=== PATIENT | male | born 1990 | race Caucasian/White ===

== ENCOUNTER 2025-05-25 07:09 | Emergency (ER) | payer OTHER, SELFPAY ==
--- OUTSIDE RECORDS SUMMARY | 2024-07-23 09:20 | XMS_ITS ---
Author Organization BILLING FACILITY [facility] Address [address] [place] [address] Care Team Providers Care Sharepoint Application Developer Name Role Phone CauseyRiley hoff Primary Care Provider Encounters Encounter Location Date Provider Diagnosis [address] [place] [address] 07/23/2024 Riley Causey Adult general medica l examination Z00.00 ASSESSMENTS Encounter Date Diagnosis Assessment Notes Treatment Notes Treatment Clinical Notes Section Notes 07/23/2024 Adult general medical examination (ICD-10 - Z00.00) PLAN OF TREATMENT Future Test Test Name Order Date Comp. Metabolic Panel (14) (CMP)(561916) 07/23/2024 TSH (393831) 07/23/2024 CBC With Differential/Platelet (224306) 07/23/2024 Lipid Panel w/ Chol/HDL Ratio (766212) 0 07/23/2024 Progress Notes * Sandie SAWYEROB:1990 (34 yo M)Acc No.[id number]:07/23/2024 Patient: Ada SAWYER :1990 Age:34 Y Sex:Male Address:[place] [address] Subjective: * Chief Complaints: * * Medical History: * Surgical History: * Hospitalization/Major Diagno stic Procedure: * Medications: Objective: Assessment: * Assessment: 1. Adult general medical examination - Z00.00 (Primary) Plan: * Treatment: * Procedure Codes: * true * Date:
--- OUTSIDE RECORDS SUMMARY | 2024-07-27 03:00 | XMS_ITS ---
Author Organization BILLING FACILITY [facility] Address [address] [place] [address] Care Team Providers Care Cable Operator Name Role Phone Riley Causey Primary Care Provider [phone] REASON FOR VISIT bw Encounters Encounter Location Date Provider Diagnosis [address] [place] [address] [address] 07/27/2024 Riley Causey PLAN OF TREATMENT No Information Progress Notes * Sandie SAWYEROB:1990 (35 yo M)Acc No.[id number]:07/27/2024 Patient: Ada SAWYER Provider: Riley Causey MD :1990 Age:34 Y Sex:Male Date:07/27/2024 Address:[address], [facility] Subjective: * Chief Complaints: * 1. Bw. * Medical History: Objective: Assessment: Plan: * Treatment: * Billing Information: * Visit Code: * Procedure Codes: * The named appointment provid er may or may not be the originator of this progress note, and it is not deemed complete until electronically signed by the appointment provider. Sign off status: Pending * Provider: Riley Causey MD Date: 07/27/2024
--- OUTSIDE RECORDS SUMMARY | 2025-05-18 13:30 | XMS_ITS | Encounter Summary ---
Author Organization [employer] s tem Address [id number] [place] [address] Care Team Providers Care Sterilization Specialist Name Role Phone Unavailable Primary Care Provider Unavailabl e Reason for Referral * Physical Therapy (Routine) - Authorized Specialty Diagnoses / Procedures Referred By Contac t Referred To Contact Rehabilitation Diagnoses Herniation of left side of L4-L5 intervertebral disc Vladimir Ley DO [address] [place] [address] Phone: tel: fax: [facility] [address] [place] [address] Phone: tel: fax: Referral ID Status Reason Start Date Expiration Date Visits Requested Visits Authorized [id number] Authorized Specialty Services Required 05/18/2025 11/18/2025 12 12 Scheduling Instructions Core strengthening * Diagnostic Imaging (Routine) - Authorized Specialty Diagnoses / Procedures Referred By Contac t Referred To Contact Radiology Diagnoses Herniation of left side of L4-L5 intervertebral disc Procedures MR lumbar spine without contrast Vladimir Ley DO [address] [place] [address] Phone: tel: fax: Referral ID Status Reason Start Date Expiration Date V isits Requested Visits Authorized [id number] Authorized 05/18/2025 05/18/2026 1 1 Reason for Visit * Reason Comments Hip pain X2 days/ Zoey's pt Encounter Details Date Type Department Care Team (Late st Contact Info) Description 05/18/2025 1:30 PM EDT Office Visit [facility] [address] [place] [address] Vladimir Ley DO [address] [place] [address] Meralgia paresthetica of right side (Primary Dx); Herniation of intervertebral disc between L5 and S1 Social History Tobacco Use Types Packs/Day Years Used Date Smoking Tobacco: Never Smokeless Tobacco: Current Chew Alcohol Use Standard Drinks/Week Comments Yes 0 (1 standard drink = 0.6 oz pur e alcohol) occasional PHQ-2 Answer Date Recorded Total Score 0 05/18/2025 Childcare Answer Date Recorded Childcare Unknown 04/29/2019 Employment Answer Date Recorded Employment Unknown 04/29/2019 Hunger Screening Answer Date Recorded Within the past 12 months we worried whether our food would run out before we got money to buy more. Never True 05/18/2025 Within the past 12 months th e food we bought just didn't last and we didn't have money to get more. Never True 05/18/2025 Purpose - Life Answer Date Recorded Purpose and direction in life Unknown Sex and Gender Information Value Date Recorded Sex Assigned at Not on file Legal Sex Male 11:48 AM EDT Gender Identity Not on file Sexual Orientation Not on file documented as of this encounter Last Filed Vital Signs Vital Sign Reading Time Taken Comments Blood Pressure 128/68 05/18/2025 1:17 PM EDT Pulse 58 05/18/2025 1:17 PM EDT Temperature 36.6 C (97.8 F) 05/18/2025 1:17 PM EDT Respiratory Rate 18 05/18/2025 1:17 PM EDT Oxygen Saturation 97% 05/18/2025 1:17 PM EDT Inhaled Oxygen Concentration - - Weight 116 kg (255 lb 12.8 oz) 05/18/2025 1:17 P M EDT Height 182.9 cm (6' 0.01 ) 05/18/2025 1:17 PM ED T Body Mass Index 34.69 05/18/2025 1:17 PM EDT documented in this encounter Patient Instructions * Attachments The following attachments cannot be sent through Care Everywhere. * Meralgia paresthetica (Cook Islander) documented in this encounter Progress Notes * Vladimir Ley, DO - 05/18/2025 1:30 PM EDT IM PROGRESS NOTE Patient - Ada Sawyer Age - 35 y.o. - 1990 ASSESSMENT & PLAN 1. Meralgia paresthetica of right side (Primary) - the complaint which brings him to the office is consistent with meralgia paresthetica - patient advised no active treatment needed for this, other than to avoid pressure to the area -no long-term sequelae to be concerned with 2. Herniation of left side of L4-L5 intervertebral disc - I reviewed the results of his recent CT scan - the patient is trying to become more active, and I have concerns with him starting a vigorous weightlifting or running program given the findings on the CT scan - will proceed with an MRI scan to better evaluate anatomic issues in the lumbar and sacral spine - PT evaluation for core strengthening and safe exercises for him to use - in the meantime, I advised patient to stick with simple walking and hand weights for his exerciseroutine - MR lumbar spine without contrast; Future - Ambulatory referral to Physical Therapy; Future -further recommendations following testing and evaluation Subjective 35-year-old male presents for evaluation of low back Problems, along with funny feeling in his right groin and thigh region. - current abnormal sensation in the right groin and thigh has been present for the week since attempting to start an exercise program including lifting weights, some light running. Comes and goes in intensity. Is worse when he lays on the right side or puts pressure on that side. Has not noticed any weakness. Does not recall symptoms like this in the past. Is more bothersome than painful. -he is concerned about it, because he was diagnosed with fairly significant back problems in November of this year. - has been in the emergency room because of severe onset of back pain stiffness which was radiatingdown his left leg - in the ED, had a CT scan of the lumbar spine which showed an L5 -S1 left paracentral disc protrusion impinging on the left L5 nerve root, along with L4- L5 disc bulge and osteophyte complex with moderate to severe spinal canal stenosis - the patient was prescribed gabapentin and tizanidine, but did not feel they really helped any - never had any physical therapy A review of systems was negative except for the following: General: weight gain Neurological: numbness/tingling. Exam BP 128/68 (BP Site: Left Arm, BP Postition: Sitting, BP CUFF SIZE: M (9-13 inches)) Pulse 58 Temp 36.6 ??C (97.8 ??F) (Tympanic) Resp 18 Ht 182.9 cm (6' 0.01 ) Wt 116 kg (255 lb 12.8 oz) SpO2 97% BMI 34.69 kg/m?? Physical Exam Vitals reviewed. Constitutional: General: He is not in acute distress. Appearance: He is obese. He is not toxic-appearing. HENT: Head: Normocephalic. Right Ear: Ear canal and external ear normal. Left Ear: Ear canal and external ear normal. Nose: No congestion or rhinorrhea. Mouth/Throat: Mouth: Mucous membranes are moist. Eyes: General: No scleral icterus. Cardiovascular: Rate and Rhythm: Normal rate and regular rhythm. Heart sounds: No murmur heard. No gallop. Pulmonary: Effort: Pulmonary effort is normal. Breath sounds: No wheezing or rales. Abdominal: Palpations: Abdomen is soft. Musculoskeletal: Right lower leg: No edema. Left lower leg: No edema. Lymphadenopathy: Cervical: No cervical adenopathy. Skin: General: Skin is warm and dry. Coloration: Skin is not jaundiced. Findings: No bruising. Neurological: Mental Status: He is oriented to person, place, and time. Sensory: No sensory deficit (No loss of pinprick sensation in the L3, L4, L5, or S1 dermatome of either leg). Motor: No weakness (Hip flexors: 5/5 bilaterally. Knee extensors: 5/5 bilaterally. Knee flexors: 5/5 bilaterally. Ankle dorsiflexion 5/5 bilaterally). Deep Tendon Reflexes: Reflexes abnormal (Absent left patellar reflux). Comments: Loss of pinprick sensation in a 10 cm band from the right ASIS into the right groin and anterior thigh using and we will testing Psychiatric: Mood and Affect: Mood normal. Behavior: Behavior normal. Meds No current outpatient medications on file. Lab Results No visits with results within 1 Month(s) from this visit. Latest known visit with results is: Hospital Outpatient Visit on 11/17/2024 Component Date Value Ref Range Status Semen -post vasectomy 11/17/2024 NO SPERM SEEN ON WET PREP Final Other Testing No results found. Vladimir Ley DO., [facility] system [facility] Office: [phone] documented in this encounter Plan of Treatment Upcoming Encounters Date Type Department Care Team (Late st Contact Info) Description 05/25/2025 3:30 PM EDT Appointment [facility] [address] [place] [address] Herniation of intervertebral disc between L5 and S1 06/07/2025 8:15 AM EDT Appointment [facility] - MRI Imaging [address] [place] [address] Vladimir Ley DO [address] [place] [address] Scheduled Orders Name Type Priority Associated Diagnoses Orde r Schedule MR lumbar spine without contrast Imaging Routine Herniation of intervertebral disc between L5 and S1 Expected: 05/18/2025, Expires: 05/18/2026 Scheduled Referrals Name Type Priority Associated Diagnoses Orde r Schedule Ambulatory referral to Physical Therapy Outpatient Referral Routine Herniation of intervertebral disc between L5 and S1 1 Occurrences starting 05/18/2025 until 05/18/2026 documented as of this encounter Visit Diagnoses Diagnosis Meralgia paresthetica of right side- Primary Herniation of intervertebral disc between L5 and S1 Herniation of intervertebral disc between L5 and S1 documented in this encounter Additional Health Concerns Assessment Noted Time PHQ-9 Depression Total Score: 0 05/18/20 25 1:17 PM EDT A Body Mass Index follow-up plan has been documented for the patient 12/22/2024 12:30 PM EST documented as of this encounter
[2025-05-25 07:15] VITALS: BP 113/60; PULSE 49; TEMP 36.6; O2SAT 98; BMI 34.6
--- OUTSIDE RECORDS SUMMARY | 2025-05-25 07:22 | XMS_ITS | Data Portability ---
Author Organization [place] - [facility], Dominga Corral Address [address] [place] [address] Care Team Providers Care Zipper Setter Lockstitch Name Role Phone DELL KIM Primary Care Provider Assessment No assessment recorded. Plan of Treatment Reminders Order Date Submit Date Provider Last Modified By Organization Details Last Modified Time Details Appointments None recorded. Lab CMP, serum or plasma 2024 025 [employer] [facility], [address] [place] [address], [id number], 5 03:07:44 lipid panel, serum 2024 025 LIDA [facility], [address] [place] [address], [address], 5 03:07:44 CBC w/ auto diff 2024 025 [place] [facility], [address] [place] [address], [id number], 5 03:07:45 HbA1c (hemoglobin A1c), blood 2024 025 [email or web address] 3 [facility], [address] [place] [address], [address], 5 15:01:01 Referral None recorded. Procedures None recorded. Surgeries None recorded. Imaging None recorded. Medication Orders gabapentin 300 mg capsule 2024 025 [id number], [address] [place], [address], 15:47:48 methylpredn isolone 4 mg tablet 2024 025 [facility], [address], [place], [place], [id number], 15:15:53 Patient TargetsNo targets recorded. Patient InstructionsNo instructions recorded. Reason for Referral None Reported. Problems No Known Problems Procedures Surgical History Date Name Laterality Status Provider Name and Address Organization Details Recorded Time 11/18/19 10 operative procedure on shoulder completed Not Available [facility] 09/23/2024 13:44:38 Anisa arthrs srg capsulorraphy completed Not Available [facility] 09/23/2024 13:44:38 tonsillectomy completed Not Available [facility] 09/23/2024 13:44:38 Imaging Results None recorded. Procedure Notes None recorded. Medical Equipment None Reported. Allergies No known drug allergies Medications Name Sig Start Date Stop Date Status Note LastModified by Organization Details LastModified Time tizanidine 4 mg tablet TAKE 1 TABLET BY MOUTH EVERY 8 HOURS NEEDED 04/01 completed Not Available Not Available Not Available prednisone 20 mg tablet TAKE 2 TABLETS BY MOUTH IN THE MORNING FOR 7 DAYS 04/01 completed Not Available Not Available Not Available methylpredn isolone 4 mg tablet 1 dose pack as directed 04/01 completed Not Available Not Available Not Available oxycodone-a cetaminophe n 5 mg-325 mg tablet TAKE 1 TABLET BY MOUTH THREE TIMES DAILY NEEDED FOR PAIN 04/01 completed Not Available Not Available Not Available gabapentin 300 mg capsule TAKE 1 CAPSULE BY MOUTH NIGHTLY 04/01 completed Not Available Not Available Not Available Vitals Date Recorded Body height Body mass index (BMI) Body weight Heart rate Oxygen saturation Oxygen saturation in Arterial blood by Pulse oximetry Systolic And Diastolic Provider Name and Address Organization Details Last Updated DateTime 182.88 cm 33.8 kg/m2 477310. 5 g 76 /min 96 % 96 % 104/62 mm[Hg] Monisha Pat [place] [facility] 14:00:35 Date Recorded Body height Body mass index (BMI) Body weight Oxygen saturation Oxygen saturation in Arterial blood by Pulse oximetry Heart rate Systolic And Diastolic Provider Name and Address Organization Details Last Updated DateTime 182.88 cm 34.3 kg/m2 390301. 15 g 96 % 96 % 75 /min 105/62 mm[Hg] TOM MOTA [place] [facility] 15:23:26 Social History Question Answer Notes LastModified by Organizat ion Details LastModified Time Tobacco Smoking Status Never Smoker TOM MOTA null, [place] [facility] 04/01/2025 15:16:48 How Many Years Have You Consumed Alcohol? 15 Information not available 04/01/2025 What Is Your Level Of Caffeine Consumption? Moderate Information not available 12/16/2024 How Much Tobacco Do You Chew? 5+/day Information not available 12/16/2024 How Many Alcoholic Drinks Do You Consume Per Day On Average? 1 Information not available 04/01/2025 What Is The Highest Grade Or Level Of School You Have Completed Or The Highest Degree You Have Received? [id number] Information not available 12/16/2024 Cigar Smoking No Information not available 12/16/2024 Does Anyone Insult Or Talk Down To You? Never Information not available 12/16/2024 Does Anyone Physically Hurt You At Home? Never Information not available 12/16/2024 Does Anyone Scream Or Curse At You? Never Information not available 12/16/2024 Does Anyone Threaten/bully You With Harm? Never Information not available 12/16/2024 Lives With Information no t available 12/16/2024 Have You Ever Served In The ? No Information not available 12/16/2024 What Was The Date Of Your Most Recent Tobacco Screening? 04/01/2025 Information not available 04/01/2025 Have You Ever Been Counseled For Unhealthy Alcohol Use? No Information not available 04/01/2025 What Is Your Relationship Status? Information not available 12/16/2024 Has Tobacco Cessation Counseling Been Provided? No Information not available 12/16/2024 How Many Days In The Past Year Have You Consumed 5 Or More Drinks? 5 Information no t available 04/01/2025 Sex: Unknown Functional Status Question Answer Note LastModified by Organizat ion Details LastModified Time How many times per week do you consume alcohol? 1-2 times per week Information not available 04/01/2025 Do you use any illicit or recreational drugs? No Information not available 04/01/2025 Do you or have you ever used any other forms of tobacco or nicotine? Yes SocialHistory Question: 'Tobacco Use/Smoking'; SocialHistory Response: 'Are you a: nonuser , Additional Findings: Tobacco User: Chews tobacco'; [email or web address] Information not available 09/24/2024 What is your level of alcohol consumption? Moderate Information not available 12/16/2024 Do you or have you ever used smokeless tobacco? Currently chews tobacco [email or web address] Information not available 04/01/2025 What is your occupation? Teacher Information not available 12/16/2024 Do you or have you ever used e-cigarettes or vape? Never used electronic cigarettes [email or web address] Information not available 04/01/2025 Mental Status None recorded. Family History Relationship Description Onset Age of this Age Resolved Age Notes LastModified by Organization Details LastModified Time Unspecified Relation Family history unknown Not available 2024 13:58:07 Maternal Grandfather Alcoholism Not available 15:36:33 Maternal Aunt Alcoholism Not a vailable 04/01/2025 15:36:33 Notes:*Relative: Mother *Pro blem: alive 59 yrs *Relative: Mother *Problem: alive 58 yrs *Relative: Maternal Grandfather *Problem: , COPD, alcohol Relative: 'Maternal G F'; *Relative: Father *Problem: alive 66 yrs *Relative: Father *Problem: alive 66 yrs, DVT legs *Relative: Unspecified Relation *Problem: 2 sons(s) 1 daughters(s) - healthy *Relative: Unspecified Relation *Problem: Dad h/o blood clots *Relative: Maternal Grandmother *Problem: alive Medical History No medical history recorded. Immunizations Vaccine Type Date Status Note Provider Nam e and Address Organization Details Recorded Time COVID-19, mRNA, LNP-S, PF, 30 mcg/0.3 mL dose 07/22/2021 completed TOMMYRNA MOTA null, [place] [facility] 04/01/2025 15:14:52 COVID-19, mRNA, LNP-S, PF, 30 mcg/0.3 mL dose 09/28/2021 completed TOM MOTA null, [place] [facility] 04/01/2025 15:14:52 Influenza, split virus, quadrivalent, PF 08/11/2019 completed TOM MOTA null, [place] [facility] 04/01/2025 15:14:52 Past Encounters Encounter ID Performer Location Encounter Start Date Encounter Closed Date Diagnosis/Indication Diagnosis SNOMED-CT Code Diagnosis ICD10 Code Diagnosis Note [id number] Riley Causey MD [facility] [address] [place] [address] 12/16/2024 13:49:53 12/16/2024 17:26:19 Lumbar radiculopathy 588984769 M54.16 Discussed the different characteri stics of muscular and radicular back pain. Recommende d ice 20 minutes on, 20 minutes off. Change positions frequently . Take a 10-20 minute walk daily. Counseled on safe core strengthen ing activities to begin once acute pain has resolved. Reinforced good posture and lifting techniques moving forward. Consider PT if not improving and consider imaging if not better then or for signs of neurologic compromise . [id number] Riley Causey MD [facility] [address] [place] [address] 04/01/2025 15:07:58 04/01/2025 16:12:57 Adult health examination 541938321 Z00.00 Counseled on achieving or maintainin g a healthy lifestyle including strength, aerobic, balance training and a clean diet with portion control. Avoid high fructose corn syrup, sucralose and aspartame - stevia may be better. Discussed maintainin g lifelong learning and benefits of this. Optimal waist circumfere nce is half of their height, but 3 decreases in this can have powerful benefits. Discussed accident safety with a focus on car-relate d dangers. Discussed age and risk-relat ed recommenda tions for colonoscop y and PSA screenings . Recommend yearly PSA through age 69 and will discuss pros and cons of continuing this thereafter . Recommend self testicular exam monthly. Try to maintain calcium intake at 6825-5906 mg daily - ideally from dietary sources - and vitamin D3 at 2000 IU daily. Daily weightbear ing exercise can help preserve bone health. Discussed skin protection and signs of concerning moles. Keep guns and ammo locked away separately . Today we reviewed all appropriat e screening recommenda tions and discussed age-approp riate vaccine recommenda tions. Emphasized loss of abdominal wt and core strengthen ing to help avoid back flares. Completed and reviewed T8 form. Will arrange fasting labs for wellness. Health Concerns Section Related Observation LastModified by Organization Detai ls LastModified Time None Recorded Concern Status LastModified by Organization Details LastModified Time None Recorded Advance Directives Directive None Recorded Payers Insurance Date Sequence Insurance Name Policy Number Policy Jaime Covered Member ID Jaime Member ID Guarantor Name 12/16/2024 1 *SELF PAY* UNKNOWN Ada Sawyer [id number] JANEROMÁN Sawyer 12/16/2024 1 *SELF PAY* UNKNOWN Ada Sawyer [id number] MELVINA Sawyer 04/30/[address] [facility] [id number] Ada Sawyer [id number] Ada Sawyer Notes Date Note Type Note Provider Name and Address Organization Details Recorded Time 12/16/2024 text/html Low back pain radiating down LLE, sharp shooting pain x5-7 days ago getting worse. NKI. Shooting down L side of leg to ankle. Not numb or tingly. Not weak. Noted at basketball practice. Stretching a lot. Using ice and heat - ice first.Worse p leaving heat on all night. No issues c bowels, urination, incontinence Riley Causey MD [address], [place], [address], [place] [facility] 12/16/2024 14:49:28 04/01/2025 text/html BB here for T-8 CGS and wellness. Feels well. Denies any new pain, injuries or symptoms. No pain since last flare in back pain. Has been stretching but not much core strengthening. Sleep , bowels, erections, urine flow good. Denies moles changing. Can walk > 10 flights of stairs s difficulty. Completed T8 exam, history and completed form then reviewed with patient. Passed vision, hearing and urine glucose testing. Passes T8 examination unconditionally. Denies h/o CAD, [place], TIA, seizures. Mood is overall good. Riley Causey MD [address], [facility] [place], [address], [place] [facility] 04/01/2025 16:11:59
--- OUTSIDE RECORDS SUMMARY | 2025-05-25 07:22 | XMS_ITS | Encounter Summary ---
Author Organization [employer] Address [id number] [address] [place] [address] Care Team Providers Care Deck Lid Fitter Name Role Phone Unavailable Primary Care Provider Unavailabl e Encounter Details Date Type Department Care Team (Late st Contact Info) Description 05/24/2025 Orders Only [facility] - Family Medicine [address] [place] [address] Vladimir Ley, DO [address] [place] [address] Herniation of intervertebral disc between L5 and S1 (Primary Dx) Social History Tobacco Use Types Packs/Day Years [...] on file documented as of this encounter Plan of Treatment Upcoming Encounters Date Type Department Care Team (Late st Contact Info) Description 05/25/2025 3:30 PM EDT [facility]ointment [facility] [address] [place] [address] Herniation of intervertebral disc between L5 and S1 06/07/2025 8:[address] [facility] - MRI Imaging [address] [place] [address] Vladimir Ley, DO [address] [place] [address] documented as of this encounter Visit Diagnoses Diagnosis Herniation of intervertebral disc between L5 and S1- Primary Herniation of intervertebral disc between L5 and S1 documented in this encounter Additional Health Concerns Assessment Noted Time PHQ-9 Depression Total Score: 0 05/18/20 25 1:17 PM EDT A Body Mass Index follow-up plan has been documented for the patient 12/22/2024 12:30 PM EST documented as of this encounter
--- OUTSIDE RECORDS SUMMARY | 2025-05-25 07:22 | XMS_ITS | Clinical Summary ---
Author Organization [employer] Address [id number] [address] 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 Take with meals. 60 tablet 05/24/20 25 Active pregabalin (LYRICA) 50 mg capsuleIndications :Herniation of intervertebral disc between L5 and S1 Take 1 capsule (50 mg total) by mouth 3 (three) times a day. 30 capsule 05/24/20 25 Active gabapentin (NEURONTIN) 300 mg capsuleIndications :Lumbar back pain with radiculopathy affecting left lower extremity Take 1 capsule (300 mg total) by mouth nightly. 30 capsule 12/22/19 25 025 Discontin ued(Thera py completed ) tiZANidine (ZANAFLEX) 4 mg tabletIndications: Lumbar back pain with radiculopathy affecting left lower extremity Take 1 tablet (4 mg total) by mouth every 8 (eight) hours as needed for muscle spasms. May cause drowsiness 30 tablet 12/22/19 25 025 Discontin ued(Thera py completed ) Active Problems Problem Noted Date Diagnosed Date Encounter for male sterilization procedure 07/21 Vasectomy evaluation 07/07/2024 Overview (07/07/2024): 07/07/24: The risks, benefits, alternatives, and complications of vasectomy were discussed with the the patient (and those present with him) based on the AUA guidelines. This included: Vasectomy is intended to be a permanent form of contraception. Vasectomy does not produce immediate sterility. Following vasectomy, another form of contraception is required until vas occlusion is confirmed by post- vasectomy semen analysis (PVSA). First specimen is requested 2 months after the procedure and he would need 1-specimen prior to stopping alternative forms of contraception. Even after vas occlusion is confirmed, vasectomy is not 100% reliable in preventing . The risk of after vasectomy is approximately 1 in 2,000 for men who have post-vasectomy azoospermia or PVSA showing rare non-motile sperm (RNMS). Repeat vasectomy is necessary in <=1% of vasectomies, provided that a technique for vas occlusion known to have a low occlusive failure rate has been used. Patients should refrain from ejaculation for approximately one week after vasectomy. Options for fertility after vasectomy include vasectomy reversal and sperm retrieval with in vitro fertilization. These options are not always successful, and they may be expensive. The rates of surgical complications such as symptomatic hematoma and infection are 1-2%. Chronic scrotal pain associated with negative impact on quality of life occurs after vasectomy in about 1-2% of men. Few of these men require additional surgery. Other permanent and non-permanent alternatives to vasectomy are available. Men or their partners should use other contraceptive methods until vasectomy success is confirmed by PVSA. He expressed an understanding and would like to proceed. Routine physical examination 03/30/2019 Encounters Date Type Department Care Team Description 05/24/2025 Orders Only [facility] - Family Medicine [address] [place] [phone] Vladimir Ley, Herniation of intervertebral disc between L5 and S1 (Primary Dx) 05/24/2025 Telephone [facility] - Family Medicine [address] [place] [address] Jami Velazco CMA 05/24/2025 Telephone [facility] - Family Medicine [address] [place] [address] Jami Velazco CMA 05/18/2025 1:30 PM EDT Office Visit [facility] Medicine [address] [place] [address] Vladimir Ley, Meralgia paresthetica of right side (Primary Dx); Herniation of intervertebral disc between L5 and S1 05/18/2025 Travel from Last 3 Months Family History Relation Name Status Comments Father Alive Mother Alive Social History Tobacco Use Types Packs/Day Years Used Date Smoking Tobacco: Never Smokeless Tobacco: Current Chew Tobacco Cessation:Ready to Q uit: Not Asked; Counseling Given: Not Answered Alcohol Use Standard Drinks/Week Comments Yes 0 [...] on file Sexual Orientation Not on file Last Filed Vital Signs Vital Sign Reading [...] Mass Index 34.69 05/18/2025 1:17 PM EDT Plan of Treatment Upcoming Encounters Date Type Department Care Team (Late st Contact Info) Description 05/25/2025 3:30 PM EDT Appointment [facility] - Total Rehab [address] [place] [address] Herniation of intervertebral disc between L5 and S1 06/07/2025 8:15 AM EDT Appointment [place] - MRI Imaging [address] [place] [phone] Vladimir Ley, DO [address] [facility] [place] [address] Health Maintenance Due Date Last Done Comments Tobacco Counseling 1989 DTaP,Tdap and Td Vaccines (1 - Tdap) 2008 COVID-19 Vaccine ( season) 07/19/202409/2021, 07/22/2021 Influenza Vaccine 07/19/2025 08/11/2019 Adult BMI Follow Up Plan 12/22/2025 12/22/2024 Adult BMI Screening 05/18/2026 05/18/2025 Depression Screening 05/18/2026 05/18/2025 Tobacco Screening 05/18/2026 05/18/2025 Medical Devices Not on file Insurance [employer]ON[employer]
--- OUTSIDE RECORDS SUMMARY | 2025-05-25 07:23 | XMS_ITS | Data Portability ---
Author Organization [place] - [facility], Dominga Corral Address [address] [place] [address] Care Team Providers Care Horticultural Technical Officer Name Role Phone DELL KIM Primary Care Provider [phone] Assessment No assessment recorded. Plan of Treatment Reminders Order Date Submit Date Provider Last Modified By Organization Details Last Modified Time Details Appointments None recorded. Lab CMP, serum or plasma 2024 025 [employer] [facility], [address] [place] [address], [address], 5 03:07:44 lipid panel, serum 2024 025 LIDA [facility], [address] [place] [address], [address], 5 03:07:44 CBC w/ auto diff 2024 025 [place] [facility], [address] [place] [address], [address], 5 03:07:45 HbA1c (hemoglobin A1c), blood 2024 025 [email or web address] 3 [facility], [address] [place] [address], [address], 5 15:01:01 Referral None recorded. Procedures None recorded. Surgeries None recorded. Imaging None recorded. Medication Orders gabapentin 300 mg capsule 2024 025 [facility], [address] [place], [address], 15:47:48 methylpredn isolone [address] [facility], [address], [place], [place], [id number], 15:15:53 Patient TargetsNo targets recorded. Patient InstructionsNo instructions recorded. Reason for Referral None Reported. Problems No Known Problems Procedures Surgical History Date Name Laterality Status Provider Name and Address Organization Details Recorded Time 11/18/19 10 operative procedure on shoulder completed Not Available [facility] 09/23/2024 13:44:38 Anisa arthrs srg capsulorraphy completed Not Available [facility] 09/23/2024 13:44:38 tonsillectomy completed Not Available [facility] 09/23/2024 13:44:38 Imaging Results None recorded. [...] Last Updated DateTime 182.88 cm 33.8 kg/m2 930100. 5 g 76 /min 96 % 96 % 104/62 mm[Hg] Monisha Pat [place] [facility] 14:00:35 Date Recorded Body height Body mass index (BMI) Body weight Oxygen saturation Oxygen saturation in Arterial blood by Pulse oximetry Heart rate Systolic And Diastolic Provider Name and Address Organization Details Last Updated DateTime 182.88 cm 34.3 kg/m2 955301. 15 g 96 % 96 % 75 /min 105/62 mm[Hg] TOM MOTA [place] [facility] 15:23:26 Social History Question Answer Notes LastModified by Organizat ion Details LastModified Time Tobacco Smoking Status Never Smoker TOM MOTA null, [place] [facility] 04/01/2025 15:16:48 How Many Years Have [...] Or The Highest Degree You Have Received? [id number] Information not available 12/16/2024 Cigar Smoking No [...] ever used smokeless tobacco? Currently chews tobacco [email or web address] Information not available 04/01/2025 What is your occupation? Teacher Information not available 12/16/2024 Do you or have you ever used e-cigarettes or vape? Never used electronic cigarettes [email or web address] Information not available 04/01/2025 Mental Status None [...] 07/22/2021 completed TOMMYRNA MOTA null, [place] [facility] 04/01/2025 15:14:52 COVID-19, mRNA, LNP-S, PF, 30 mcg/0.3 mL dose 09/28/2021 completed TOM MOTA null, [place] [facility] 04/01/2025 15:14:52 Influenza, split virus, quadrivalent, PF 08/11/2019 completed TOM MOTA null, [place] [facility] 04/01/2025 15:14:52 Past Encounters Encounter ID Performer Location Encounter Start Date Encounter Closed Date Diagnosis/Indication Diagnosis SNOMED-CT Code Diagnosis ICD10 Code Diagnosis Note [id number] Riley Causey MD [facility] [address] [place] [address] 12/16/2024 13:49:53 12/16/2024 17:26:19 Lumbar radiculopathy 034614254 M54.16 Discussed the different characteri stics of [...] or for signs of neurologic compromise . [id number] Riley Causey MD [facility] [address] [place] [address] 04/01/2025 15:07:58 04/01/2025 16:12:57 Adult health examination 532532339 Z00.00 Counseled on achieving or maintainin g [...] monthly. Try to maintain calcium intake at 3468-7828 mg daily - ideally from dietary sources [...] 12/16/2024 1 *SELF PAY* UNKNOWN Ada [place] [id number] JANEROMÁN [place] 12/16/2024 1 *SELF PAY* UNKNOWN Ada [place] [id number] MELVINA [place] 04/30/2025 1 [facility] [id number] [address] [place] [id number] Ada [place] Notes Date Note Type Note [...] urination, incontinence Riley Causey MD [address], [place], [address], [place] [facility] 12/16/2024 14:49:28 04/01/2025 [...] Passes T8 examination unconditionally. Denies h/o CAD, ME, TIA, seizures. Mood is overall good. Riley Causey MD [address], [place], [address], [place] [facility] 04/01/2025 16:11:59
--- OUTSIDE RECORDS SUMMARY | 2025-05-25 07:23 | XMS_ITS | Patient Health Record ---
Author Organization [facility] [employer] [employer] [facility] Address [address] [place] [address] Care Team Providers Care Rough Rice Grader Name Role Phone Riley Causey Primary Care Provider ALLERGIES No Known Allergies REASON FOR REFERRAL No Information MEDICATIONS Medication SIG (Take, Route, Fr equency, Duration) Notes Start Date End Date Status Ibuprofen 600 MG 1 tablet with food o r milk as needed Orally Three times a day for 10 days 07/15/2024 Active SOCIAL HISTORY Tobacco Use: Social History Observation Description Date Details (start date - stop date) Never Smoker NA - NA Sex Assigned At : Social History Observation Description Sex Assigned At Unknown Tobacco Use/Smoking Question Answer Notes Are you a nonuser Additional Findings: Tobacco User Chews tobacco Section Notes: Home c , 3 kids. 2 dogs. EtOH 6-8 drinks/week VITAL SIGNS Heart Rate 61 /min 07/15/2024 Oximetry 97 % 07/15/2024 Blood pressure diastolic 78 mm Hg 07/15/2024 Weight-kg 118.02 kg 07/15/2024 Height 72 in 07/15/2024 Blood pressure systolic 116 mm Hg 07/15/2024 Weight 260.2 lbs 07/15/2024 BMI 35.29 07/15/2024 Encounters Encounter Location Date Provider Diagnosis [facility] [address] [place] [address] 07/27/2024 Riley Causey [facility] [address] [place] [address] 07/15/2024 Riley Causey Adult general medica l examination Z00.00 ; Acute left-sided low back pain without sciatica M54.50 and Body mass index [BMI] 35.0-35.9, adult Z68.35 [facility] [address] [place] [address] 07/23/2024 Riley Causey Adult general medica l examination Z00.00 ASSESSMENTS Encounter Date Diagnosis Assessment Notes Treatment Notes Treatment Clinical Notes Section Notes 07/15/2024 Adult general medical examination (ICD-10 - Z00.00) Discussed with pt the benefits of aerobic and strength exercise and discussed practical options for both with consideration of their current medical and functional condition. Discussed attempting to achieve/maintain their optimal waist circumference or potentially a decrease in weight of 10% vs a decrease in waist circumference of 3 to achieve a medical improvement. Suggested a clean diet with portion control with adequate healthy fats and little processing. Try to avoid high fructose corn syrup, aspartame and sucralose.Discussed safety measures, including car and abduction considerations, specific to the patient. Discussed importance of sleep and ideas for improved sleep hygeine. Discussed colonoscopy recommendations based on age and prior results. Discussed USPSTF recommendations regarding PSA testing and considerations for testing based on age, family history, and urinary symptoms. Reviewed recommendations for all age-appropriate vaccines, injections. Recommend yearly flu shot. Discussed stress related to kids and he feels this will be better now he's back on a more regular schedule. Offered counseling, but he likes the idea of strength training and possibly heavy bag and will call if sxs worsen. 07/15/2024 Acute left-sided low back pain without sciatica (ICD-10 - M54.50) Refilled ibuprofen and stressed using occasionally, as needed and with food. Counseled on core strengthening, back and hamstrings stretches. Will attempt to decrease WC. Reassess at wellness in 12 mos 07/23/2024 Adult general medical examination (ICD-10 - Z00.00) 07/15/2024 Body mass index [BMI] 35.0-35.9, adult (ICD-10 - Z68.35) 07/15/2024 Other counseled on stopping chewing tobacco PLAN OF TREATMENT Future Test Test Name Order Date Comp. Metabolic Panel (14) (CMP)([id number]) 07/23/2024 TSH ([id number]) 07/23/2024 CBC With Differential/Platelet ([id number]) 07/23/2024 Lipid Panel w/ Chol/HDL Ratio (462946) 0 07/23/2024 Insurance Providers Payer Name Payer Address Payer Phone Subscriber Number Group Number Insured Name Patient Relationship to Insured Coverage Start Date Coverage End Date JARED HUERTA [facility] PPO MEDBEN [address] [place] [address] [id number] Ada [place] Self - patient is the insured MEDICAL (GENERAL) HISTORY Medical History History ICD Code Low back pain M54.50 Surgical History Surgery Date(Month/Year) SHOULDER ARTHROSCOPY/SURGERY
--- OUTSIDE RECORDS SUMMARY | 2025-05-25 07:23 | XMS_ITS | Encounter Summary ---
Author Organization [employer] Address [id number] [address] [place] [address] Care Team Providers Care Truck Packer Name Role Phone Unavailable Primary Care Provider Unavailabl e Encounter Details Date Type Department Care Team (Late st Contact Info) Description 12/18/2024 Telephone [facility] - Family Medicine [address] [place] [address] Tena Patel CMA Social History Tobacco Use Types Packs/Day Years Used Date Smoking Tobacco: Never Smokeless Tobacco: Current Chew Alcohol Use Standard Drinks/Week Comments Yes 0 (1 standard drink = 0.6 oz pur e alcohol) occasional PHQ-2 Answer Date Recorded Total Score 0 12/22/2024 Childcare Answer Date Recorded Childcare Unknown 04/29/2019 Employment Answer Date Recorded Employment Unknown 04/29/2019 Hunger Screening Answer Date Recorded Within the past 12 months we worried whether our food would run out before we got money to buy more. Never True 12/22/2024 Within the past 12 months th e food we bought just didn't last and we didn't have money to get more. Never True 12/22/2024 Purpose - Life Answer Date Recorded Purpose and direction in life Unknown Sex and Gender Information Value Date Recorded Sex Assigned at Not on file Legal Sex Male 11:48 AM EDT Gender Identity Not on file Sexual Orientation Not on file documented as of this encounter Miscellaneous Notes * Telephone Encounter - Tena Patel CMA - 12/18/2024 11:47 AM EST Pt called was in ER today was told he has a herniated disc , he stated it feels worse than that. * Telephone Encounter - ROSA Bunn - 12/18/2024 11:47 AM EST He will need to make an appointment if he wants to discuss further * Telephone Encounter - Tena Patel CMA - 12/18/2024 11:47 AM EST Appt made documented in this encounter Plan of Treatment Upcoming Encounters Date Type Department Care Team (Late st Contact Info) Description 05/25/2025 3:30 PM EDT Appointment [facility] - Total Rehab [address] [place] [address] Herniation of intervertebral disc between L5 and S1 06/07/2025 8:15 AM EDT Appointment [facility] - MRI Imaging [address] [place] [address] Vladimir Ley, DO [address] [place] [address] documented as of this encounter Visit Diagnoses Not on filedocumented in this encounter Additional Health Concerns Assessment Noted Time PHQ-9 Depression Total Score: 0 06/25/20 23 8:08 AM EDT A Body Mass Index follow-up plan has been documented for the patient 07/01/2023 7:19 AM EDT documented as of this encounter
--- OUTSIDE RECORDS SUMMARY | 2025-05-25 07:23 | XMS_ITS | Clinical Summary ---
Author Organization [facility] Address [address] [place] [address] Care Team Providers Care Bracelet Former Name Role Phone Unavailable Primary Care Provider Unavailabl e Social History Tobacco Use Types Packs/Day Years Used Date Smoking Tobacco: Never Assessed Sex and Gender Information Value Date Recorded Sex Assigned at Not on file Legal Sex Male 11:07 PM EST Gender Identity Not on file Sexual Orientation Not on file Plan of Treatment Not on file
--- OUTSIDE RECORDS SUMMARY | 2025-05-25 07:23 | XMS_ITS | Encounter Summary ---
Author Organization [employer] Address [id number] [address] [place] [address] Care Team Providers Care Wardrobe Stylist Name Role Phone Unavailable Primary Care Provider Unavailabl e Encounter Details Date Type Department Care Team (Late Contact Info) Description 05/24/2025 Telephone [facility] - Family Medicine [address] [place] [address] Jami Velazco CMA Social History Tobacco Use Types Packs/Day [...] Upcoming Encounters Date Type Department Care Team ([facility] Contact Info) Description 05/25/2025 3:30 PM EDT Appointment [facility] - Total Rehab [address] [place] [address] Herniation of intervertebral disc between L5 and S1 06/07/2025 8:15 AM EDT Appointment [facility] - MRI Imaging [address] [place] [phone] Vladimir Ley, DO [address] [place] [address] documented as of this encounter Visit Diagnoses Not on filedocumented in this encounter Additional Health Concerns Assessment Noted Time PHQ-9 Depression Total Score: 0 05/18/20 25 1:17 PM EDT A Body Mass Index follow-up plan has been documented for the patient 12/22/2024 12:30 PM EST documented as of this encounter
--- OUTSIDE RECORDS SUMMARY | 2025-05-25 07:23 | XMS_ITS | Encounter Summary ---
Author Organization [employer] Address [id number] [address] [place] [address] Care Team Providers Care Door Glass Installer Name Role Phone Unavailable Primary Care Provider Unavailabl e Encounter Details Date Type Department Care Team (Latest Contact Info) Description 05/18/2025 Travel Social History Tobacco Use Types Packs/Day Years [...] Description 05/25/2025 3:30 PM EDT Appointment [facility] - Total Rehab [address] [place] [address] Herniation of intervertebral disc between L5 and S1 06/07/2025 8:15 AM EDT Appointment [facility] - MRI Imaging [address] [place] [address] Vladimir Ley, DO [address] [place] [address] documented as of this encounter Visit Diagnoses Not on filedocumented in this encounter Additional Health Concerns Assessment Noted Time PHQ-9 Depression Total Score: 0 05/18/20 25 1:17 PM EDT A Body Mass Index follow-up plan has been documented for the patient 12/22/2024 12:30 PM EST documented as of this encounter
--- OUTSIDE RECORDS SUMMARY | 2025-05-25 07:23 | XMS_ITS | Encounter Summary ---
Author Organization [employer] Address [id number] [address] [place] [address] Care Team Providers Care Scale Mechanic Name Role Phone Unavailable Primary Care Provider Unavailabl e Encounter Details Date Type Department Care Team (Late st Contact Info) Description 05/24/2025 Telephone [facility] - Family Medicine [address] [place] [phone] Jami Velazco CMA Social History Tobacco Use [...] encounter Miscellaneous Notes * Telephone Encounter - Jami Velazco CMA - 05/24/2025 12:09 PM EDT Pt called in stating his back pain since his visit last week is unbearable. He stated his MRI is scheduled for 2 weeks out. Pt starts his PT tomorrow (Saturday). He stated the pain is continuously getting worse to where he cannot move. Thank you. documented in this encounter Plan of Treatment Upcoming Encounters Date Type Department Care Team (Late st Contact Info) Description 05/25/2025 3:[address] [facility] - Total Rehab [address] [place] [address] Herniation of intervertebral disc between L5 and S1 06/07/2025 8:15 AM EDT Appointment [facility] - MRI Imaging [address] [place] [address] Vladimir Ley, DO [address] [place] [address] documented as of this encounter Visit Diagnoses Not on filedocumented in this encounter Additional Health Concerns Assessment Noted Time PHQ-9 Depression Total Score: 0 05/18/20 25 1:17 PM EDT A Body Mass Index follow-up plan has been documented for the patient 12/22/2024 12:30 PM EST documented as of this encounter
[2025-05-25] MEDS: KETOROLAC TROMETHAMINE 60 MG/2 ML VIAL IM (08:04)
[2025-05-25] MEDS: METHYLPREDNISOLONE SOD SUCC PF 40 MG/ML VIAL IM (08:04)
--- NOTE | 2025-05-25 09:33 | ED_ITS ---
HPI HPI - Back Pain/Injury General Chief Complaint: Back Pain/Injury Stated Complaint: LOWER BACK PAIN Time Seen by Provider: 05/25/25 07:20 Source: patient Mode of arrival: walk-in Limitations: no limitations History of Present Illness HPI Narrative: The patient is coming to the ER with a back pain that been going on at least for a few weeks he had multiple episode of back pain before and apparently had workup done as outpatient including a CAT scan he was planned to have a MRI on the June 07 The patient asked if he can get the MRI done in the ER I did explain to him since he does not have any radiation of the pain down his legs and there is no incontinence of urine or stool and there is no numbness tingling in his buttock area The patient does not have any alarming symptoms and he have to wait to get the MRI done on June 07 There was no fall or trauma there is no carrying anything heavy that caused the pain the patient mentioned sometimes that he have some right hip pain and he was told he might have some arthritis Related Data Previous Rx's ?Medication ?Instructions ?Recorded diclofenac sodium 75 mg 75 mg PO BID PRN pain #20 ta bs 05/25/25 tablet,delayed release orphenadrine citrate 100 mg 100 mg PO BID PRN muscle s pasm #20 05/25/25 tablet,extended release tabs prednisone 20 mg tablet 40 mg (2 x 20 mg) PO DAILY 5 days 05/25/25 #10 tabs Allergies Allergy/AdvReac Type Severity Reaction Status Date / Time No Known Drug Allergies Allergy Verified 05/25/25 07:15 Opioid HPI Opioid Management Most Recent Opioid Data: Last Pain Scale 10 Today, 07:22 Review of Systems ROS Status of ROS 10 or more systems reviewed and unremark able except as noted in history and below PFSH PFSH Social History Little interest or pleasure in doing things: not at all Feeling down, depressed, or hopeless: not at all Exam Narrative Exam Narrative: Nurses notes and vital signs reviewed and patient is not hypoxic. General: Well-appearing and in no apparent distress. Skin: Warm, dry, no pallor noted. No rash. Head: Normocephalic, atraumatic. Neck: Supple, non-tender. Eye: Pupils are equal, round and EOMI. No scleral icterus. Cardiovascular: Regular Rate and Rhythm without murmur, gallop or rub. Respiratory: No accessory muscle use or respiratory distress. Lungs are clear to auscultation, no wheezing, rales or rhonchi Chest Wall: no tenderness Back: No midline thoracic or lumbar vertebral tenderness. No CVA tenderness Musculoskeletal: normal ROM, no calf or popliteal tenderness, no lower extremity edema/swelling GI: Abdomen is soft, non-distended. Normal bowel sounds. No masses appreciated. No tenderness to palpation. No rebound, guarding, or rigidity noted. Neurological: A&O x4. No cranial nerve dysfunction observed. No truncal ataxia. Moves all extremities. Sensation intact. Psychiatric: Cooperative and interactive. Normal mood and affect. Constitutional Vital Signs, click to edit/add: Last Vital Signs Temp 97.8 F 05/25/25 07:15 Pulse 49 L 05/25/25 07:15 Resp 16 05/25/25 07:15 BP 113/60 05/25/25 07:15 Pulse Ox 98 05/25/25 07:15 O2 Del Method Room Air 05/25/25 07:15 Course Vital Signs Vital signs: Vital Signs Temperature 97.8 F 05/25/25 07:15 Pulse Rate 49 L 05/25/25 07:15 Respiratory Rate 16 05/25/25 07:15 Blood Pressure 113/60 05/25/25 07:15 Pulse Oximetry 98 05/25/25 07:15 Oxygen Delivery Method Room Air 05/25/25 07:15 Temperature 97.8 F 05/25/25 07:15 Pulse Rate 49 L 05/25/25 07:15 Respiratory Rate 16 05/25/25 07:15 Blood Pressure 113/60 05/25/25 07:15 Pulse Oximetry 98 05/25/25 07:15 Oxygen Delivery Method Room Air 05/25/25 07:15 MDM - Back Pain/Injury MDM Narrative Medical decision making narrative: The patient complete examination was benign but his presentation with his age having back pain and joint pain I did explain to the patient that he need to make sure that he follow-up with his primary care for further rheumatological evaluation The patient was started on prednisone as well as Toradol in the ER discharged home with prednisone Norflex and Voltaren Educated about the alarming symptoms The patient is to follow up with primary care physician in next 2-3 days or to return to the emergency department should any of the signs or symptoms worsen or new symptoms develop. The patient agrees with the following Diagnosis and Treatment plan and the patient will be discharged home. Discharge Plan Discharge Chief Complaint: Back Pain/Injury Clinical Impression: Back pain Patient Disposition: Home, Self-Care Time of Disposition Decision: 08:02 Condition: Good Mode of Transportation: Private Vehicle Prescriptions / Home Meds: New diclofenac sodium 75 mg tablet,delayed release (DR/EC) 75 mg PO BID PRN (Reason: pain) Qty: 20 0RF orphenadrine citrate 100 mg tablet extended release 100 mg PO BID PRN (Reason: muscle spasm) Qty: 20 0RF prednisone 20 mg tablet 40 mg PO DAILY 5 Days Qty: 10 0RF Print Language: Chadian Instructions: Back Pain (ED) Referrals: TAMIA VICENTE [Primary Care Provider, Internal Medicine] - 1 week Discharge Date/Time: 05/25/25 08:14
== END 2025-05-25 08:14 | disposition home or self-care (01) ==
PROVIDERS: Emergency Provider Emergency Medicine; Family Provider Family Medicine; PCP Internal Medicine
DX: M54.50 Low back pain, unspecified (principal)
CPT/HCPCS: 96372; 99284; J1885; J2919